=== PATIENT | male | born 2000 | race Caucasian/White ===

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

== ENCOUNTER → 2019-01-24 | Outpatient (REF) | payer OTHER ==
[~2019-01-24] MED LIST changes: +IBUP-1094 PO
[2019-01-24 17:45] LABS: ALT/SGPT 29 U/L (12-78); BILIRUBIN,TOTAL 0.6 MG/DL (0.2-1.0); BLOOD UREA NITROGEN 13 MG/DL (7-18); CALCIUM LEVEL 9.4 MG/DL (8.5-10.1); CARBON DIOXIDE LEVEL 30 MEQ/L (21-32); CHLORIDE LEVEL 109 MEQ/L (98-107); CREATININE FOR GFR 0.84 MG/DL (0.70-1.30); GLUCOSE, FASTING 87 MG/DL (70-100); POTASSIUM SERUM 4.2 MEQ/L (3.5-5.1); SODIUM LEVEL 142 MEQ/L (136-145); TOTAL PROTEIN 7.6 GM/DL (6.4-8.2)
[2019-01-24 17:48] LABS: BASO % 0.7 % (0.0-1.0); EOS # 0.4 10^3/uL (0.0-0.5); EOS % 6.5 % (0.0-3.0); HEMATOCRIT 45.5 % (42.0-52.0); LYMPH % 33.8 % (24.0-44.0); MEAN CORPUSCULAR HEMOGLOBIN 30.1 pg (27.0-33.0); MEAN CORPUSCULAR VOLUME 91.4 fl (80.0-96.0); MONO # 0.5 10^3/uL (0.0-0.8); MONO % 7.8 % (0.0-5.0); NEUTROPHILS # 3.1 10^3/uL (1.5-8.5); PLATELET COUNT, AUTOMATED 161 10^3/uL (150-450); RED BLOOD COUNT 4.98 10^6/uL (4.30-6.10)
[2019-01-24 17:57] LABS: MONO REFLEX EBV COMP NEGATIVE (NEGATIVE)
[2019-01-26 14:07] LABS: EBV AB TO NUCLEAR ANTIGEN >600.0 U/mL (0.0-17.9); EBV VIRAL CAPSID AG IgM <36.0 U/mL (0.0-35.9)
== END ==
LOC: M LAB REF 16:23
PROVIDERS: ATTEND Physician Assistant
DX: J02.9 Acute pharyngitis, unspecified (principal)

== ENCOUNTER 2019-06-06 04:00 | Emergency (ER) | payer OTHER ==
[~2019-06-06] VITALS: Ht 175.3 cm; Wt 87.3 kg
[2019-06-06] MEDS ORDERED: NAPR-837 PO (05:36)
[2019-06-06 05:45] VITALS: BP 137/74
[2019-06-06] MEDS ORDERED: NAPROXEN 250 MG TAB PO ONE (05:45)
--- NOTE | 2019-06-06 07:09 | REP ---
Clinical: Trauma. Ankle sprain. Technique: AP, lateral, bilateral oblique views of the left ankle. Findings: No acute fracture or dislocation. Skeletal structures, joint spaces, and surrounding soft tissues appear normal. Impression: No acute fracture or dislocation. Electronically Signed by Juanito Nuñez MD 06/06/2019 07:00 A
== END 2019-06-06 05:58 | disposition home or self-care (01) ==
LOC: M ED 04:00
DX: S93.402A Sprain of unspecified ligament of left ankle, initial encounter (principal); X50.1XXA Overexertion from prolonged static or awkward postures, initial encounter; Y92.830 Public park as the place of occurrence of the external cause; Y93.9 Activity, unspecified; Y99.9 Unspecified external cause status

== ENCOUNTER → 2019-06-24 | Outpatient (REF) | payer OTHER ==
[~2019-06-24] MED LIST changes: +NAPR-837 PO
== END ==
LOC: M LAB REF 12:21
PROVIDERS: ATTEND Physician Assistant
DX: R05 Cough (principal)

== ENCOUNTER → 2019-07-25 | Outpatient (CLI) | payer OTHER ==
--- NOTE | 2019-07-25 14:49 | REP ---
LEFT HAND, FOUR VIEWS: There is no evidence of an acute fracture, dislocation or intrinsic bone disease. The joint spaces appear normal. IMPRESSION: No fracture or dislocation. Electronically Signed by Jam Bolton MD 07/26/2019 10:07 A
== END ==
LOC: M ADAMS 11:56
PROVIDERS: ATTEND Physician Assistant
DX: M79.642 Pain in left hand (principal); M79.645 Pain in left finger(s)

== ENCOUNTER → 2020-04-22 | Outpatient (CLI) | payer OTHER ==
[~2020-04-22] MED LIST changes: -IBUP-1094 PO; +SFHIBU200 PO
--- NOTE | 2020-04-23 07:05 | REP ---
INDICATION: M79.672 [id number] COMPARISON: None. TECHNIQUE: AP, lateral, bilateral oblique views left foot. FINDINGS: The osseous structures and joint spaces are intact and normal. There is no evidence for acute fracture or dislocation. Surrounding soft tissues are unremarkable. No subcutaneous emphysema or radiodense foreign body. IMPRESSION: Normal left foot radiograph series. No acute fracture or dislocation. <Electronically signed by Juanito Nuñez > 04/23/20 0701
== END ==
LOC: M RAD 16:57
PROVIDERS: ATTEND Physician Assistant
DX: M79.672 Pain in left foot (principal); Z91.81 History of falling

== ENCOUNTER 2020-08-21 09:32 | Emergency (ER) | payer BC, OTHER ==
[~2020-08-21] VITALS: Ht 175.3 cm; Wt 100.0 kg
[2020-08-21 09:32] VITALS: BP 120/72
--- NOTE | 2020-08-21 10:12 | REP ---
INDICATION: TRAUMA COMPARISON: 06/06/2019 TECHNIQUE: AP, lateral, bilateral oblique views. FINDINGS: Swelling suggesting inversion injury. No acute fracture or dislocation. Corticated bony density just below the fibular tip remains stable. Ankle mortise appears intact. IMPRESSION: Mild swelling. No acute fracture or dislocation appreciated. <Electronically signed by Juanito Nuñez > 08/21/20 0309
--- NOTE | 2020-08-21 10:12 | REP ---
INDICATION: TRAUMA COMPARISON: None. TECHNIQUE: AP, lateral, bilateral oblique views left foot. FINDINGS: The osseous structures and joint spaces are intact and normal. There is no evidence for acute fracture or dislocation. Surrounding soft tissues are unremarkable. No subcutaneous emphysema or radiodense foreign body. IMPRESSION: . No acute fracture or dislocation. <Electronically signed by Juanito Nuñez > 08/21/20 5643
== END 2020-08-21 11:00 | disposition home or self-care (01) ==
LOC: M ED 09:32
DX: S93.402A Sprain of unspecified ligament of left ankle, initial encounter (principal); X50.9XXA Other and unspecified overexertion or strenuous movements or postures, initial encounter; Y92.310 Basketball court as the place of occurrence of the external cause; Y93.02 Activity, running; Y99.8 Other external cause status; F17.200 Nicotine dependence, unspecified, uncomplicated

== ENCOUNTER 2021-01-31 06:38 | Emergency (ER) | payer BC, MEDICAID, OTHER ==
[~2021-01-31] VITALS: Ht 175.3 cm; Wt 95.2 kg
[2021-01-31 06:39] VITALS: BP 136/70
--- OUTSIDE RECORDS SUMMARY | 2021-01-31 06:45 | CCD ---
Author Author [facility] Organization [facility] Address Unknown Phone Unavailable Care Team Providers Care Infrastructure Manager Name Role Phone Maring, Shaggy PA Unavailable Unavailable Maring, Shaggy PA Unavailable Unavailable Maring, Shaggy PA Unavailable Unavailable Maring, Shaggy PA Unavailable Unavailable Maring, Shaggy PA Unavailable Unavailable Maring, Shaggy PA Unavailable Unavailable Maring, Shaggy PA Unavailable Unavailable Maring, Shaggy PA Unavailable Unavailable Maring, Shaggy PA Unavailable Unavailable Maring, Shaggy PA Unavailable Unavailable Maring, Shaggy PA Unavailable Unavailable Maring, Shaggy PA Unavailable Unavailable Maring, Shaggy PA Unavailable Unavailable Maring, Shaggy PA Unavailable Unavailable Maring, Shaggy PA Unavailable Unavailable Maring, Shaggy PA Unavailable Unavailable Alberts, Katelin Stacie PA Unavailable Unavailable Alberts, Katelin Stacie PA Unavailable Unavailable Alberts, Katelin Stacie PA Unavailable Unavailable Alberts, Katelin Stacie PA Unavailable Unavailable Alberts, Katelin Stacie PA Unavailable Unavailable Alberts, Katelin Stacie PA Unavailable Unavailable Alberts, Katelin Stacie PA Unavailable Unavailable Alberts, Katelin Stacie PA Unavailable Unavailable Alberts, Katelin Stacie PA Unavailable Unavailable Alberts, Katelin Stacie PA Unavailable Unavailable Re-disclosure Warning The records that you are about to access may contain information from federally-assisted alcohol or drug abuse programs. If such information is present, then the following federally mandated warning applies: This information has been disclosed to you from records protected by federal confidentiality rules (42 CFR part 2). The federal rules prohibit you from making any further disclosure of this information unless further disclosure is expressly permitted by the written consent of the person to whom it pertains or as otherwise permitted by 42 CFR part 2. A general authorization for the release of medical or other information is NOT sufficient for this purpose. The Federal rules restrict any use of the information to criminally investigate or prosecute any alcohol or drug abuse patient.The records that you are about to access may contain highly sensitive health information, the redisclosure of which is protected by Article 27-F of the [facility] Public Health law. If you continue you may have access to information: Regarding HIV / AIDS; Provided by facilities licensed or operated by the [facility] Office of Mental Health; or Provided by the [facility] Office for People With Developmental Disabilities. If such information is present, then the following [facility] mandated warning applies: This information has been disclosed to you from confidential records which are protected by state law. State law prohibits you from making any further disclosure of this information without the specific written consent of the person to whom it pertains, or as otherwise permitted by law. Any unauthorized further disclosure in violation of state law may result in a fine or senior care sentence or both. A general authorization for the release of medical or other information is NOT sufficient authorization for further disc losure. Family History Family Member Name Family Member Gender Family Member Status Date o f Status Description Data Source(s) Unknown Unknown Problem [facility] ([facility]) mgm Unknown Unknown Problem [facility] Encounters Encounter Providers Location Date Indications Data Source(s ) Outpatient 01/18/2021 08:32:54 PM EDT - 021 08:51:03 PM EDT [facility] ([facility]) Outpatient Attender: Shaggy MARTIN 11/16/19 03:04:00 PM EDT - 11/15/2020 03:43:52 PM EDT [facility] ([facility] ) Outpatient Attender: Stacie MARTIN Ceci Naylor fantasma 04/22/2020 01:55:00 PM EST [facility] ([facility]) Medications No Information Insurance Providers Payer name Policy type / Coverage type Policy ID Covered republican ID Covered republican's relationship to shaffer Policy Shaffer Plan Information BCBS E[place]IRE [place] DIV [id number] MO2 [id number] O BLUE [id number] SP [id number] BCBS E[place]IRE [place] DIV [id number] MO2 [id number] BCBS E[place]IRE [place] DIV [id number] MO2 [id number] BC/CHP ([facility]) Health Maintenance Organization (O) [id number] Self [id number] BC/CHP (VF) Health Maintenance Organization (O) [id number] Self [id number] [place] [employer] [id number] Family Dependent [id number] [employer] [id number] Family Dependent [id number] Medicaid P [id number] S [id number] 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 WorkComp Health Claim [id number] Emp [place] [id number] Medicaid Medicaid [id number] Self [id number] WorkComp Carrier [place] WorkComp Health Claim [id number] Employ 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 [id number] Employee [id number] [employer] [place] [employer] [id number] Family Dependent [id number] [employer] [place] [employer] [id number] Family Dependent [id number] [facility] [place] [employer] [id number] Family Dependent [id number] [facility] [place] Health Maintenance Organization (HMO) [id number] Family Dependent [id number] [facility] O [id number] S [id number] [facility] [place] Health Maintenance Organization (HMO) [id number] Family Dependent [id number] [facility] [id number] MO2 [id number] [facility] [id number] MO2 [id number] [facility] [place] Health Maintenance Organization (HMO) [id number] Family Dependent [id number] [facility] [place] [employer] [id number] Family Dependent [id number] [facility] [place] [employer] [id number] Family Dependent 8 [id number] [facility] [place] [employer] [id number] Family Dependent 8 [id number] [facility] O [id number] S [id number] [place] 306/806 [id number] SP [id number] [facility] [place] Family Levels Beyond [id number] Self [facility] [place] [employer] [id number] Family Depende nt D [facility]SEA Dental Claims P [id number] O [id number] D Managed Care [facility] O [id number] S [id number] Medicaid Dental S UNAVAILABLE S UN AVAILABLE D [facility] P [id number] S [id number] [facility](MCAID) O [id number] S [id number] [facility] [id number] SP [id number] [facility] [id number] SP [id number] [facility] [id number] MO2 [id number] Medicaid P [id number] S [id number] Self Pay P [id number] S [id number] Self Pay P UNAVAILABLE S UNAVAILA BLE D [facility] P [id number] S [id number] Problems, Conditions, and Diagnoses No Information Surgeries/Procedures Procedure Description Date Indications Data Source(s) Apply Splint Short Leg (Calf To Foot) 04/22/2020 12:00 :00 AM EST [facility]) Results ID Date Data Source [id number] 2021 12:00:00 AM EDT [facility] Name Value Range Interpretation Code Description Data Sanjana rce(s) Supporting Document(s) SARS-COV-2 Negative [facility] and re ported by [facility]. Procedure Social History No Information Vital Signs ID Date Data Source UNK Name Value Range Interpretation Code Description Data Source(s) Oxygen saturation in Arterial blood by Pulse oximetry 98 % 98 % [facility] ([facility]) Body temperature 98.9 [degF] 98.9 [degF] [facility] ([facility]) Body weight 205.00 [lb_av] 205.00 [lb_av] MEDEN T ([facility]) Systolic blood pressure 124 mm[Hg] 124 mm[Hg] M EDENT ([facility]) Diastolic blood pressure 74 mm[Hg] 74 mm[Hg] [facility] ([facility]) Respiratory rate 16 /min 16 /min [facility] ( [facility]) Heart rate 104 /min 104 /min MED[facility] ([facility])
[2021-01-31 08:23] VITALS: O2SAT 97
--- OUTSIDE RECORDS SUMMARY | 2021-01-31 08:34 | CCD ---
Author Author [facility] Organization [facility] Address Unknown Phone Unavailable Care Team Providers Care Machine Feeder Raw Stock Name Role Phone Maring, Shaggy PA Unavailable [...] is protected by Article 27-F of the [facility] Public Health law. If you continue you may have access to information: Regarding HIV / AIDS; Provided by facilities licensed or operated by the [facility] Office of Mental Health; or Provided by the [facility] Office for People With Developmental Disabilities. If such information is present, then the following [facility] mandated warning applies: This information has [...] law may result in a fine or care home sentence or both. A general authorization for the release of medical or other information is NOT sufficient authorization for further disc losure. Family History Family Member Name Family Member Gender Family Member Status Date o f Status Description Data Source(s) Unknown Unknown Problem [facility] ([facility]) mgm Unknown Unknown Problem [facility] ([facility] Encounters Encounter Providers Location Date Indications Data Source(s ) Outpatient 01/18/2021 08:32:54 PM EDT - 021 08:51:03 PM EDT [facility] ([facility]) Outpatient Attender: Shaggy MARTIN 11/16/19 03:04:00 PM EDT - 11/15/2020 03:43:52 PM EDT [facility] ([facility] ) Outpatient Attender: Stacie MARTIN Ceci Naylor fantasma 04/22/2020 01:55:00 PM EST [facility] ([facility]) Medications No Information Insurance Providers Payer name Policy type / Coverage type Policy ID Covered constitution party ID Covered constitution party's relationship to shaffer Policy Shaffer Plan Information BCBS EMPIRE [place] DIV [id number] MO2 [id number] BCBS EMPIRE [place] DIV [id number] MO2 [id number] BCBS E[place]IRE [place] DIV [id number] MO2 [id number] O BLUE [id number] SP [id number] BC/CHP ([facility]) Health Maintenance Organization (O) [id number] Self [id number] BC/CHP ([facility]) Health Maintenance Organization (O) [id number] Self [id number] [place] [employer] [id number] 2..[id number] Family Dependent [id number] [employer] [employer] [id number] Family Dependent [id number] Medicaid P [id number] S [id number] WorkComp Carrier [place] WorkComp Health Claim [id number] Employ ee [id number] 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 WorkComp Health Claim [id number] Emp loyee [id number] Medicaid Medicaid [id number] Self [id number] 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 [id number] Employee [id number] [facility] Maintenance Organization ([facility]) [id number] Family Dependent [id number] [facility] [id number] S [id number] [facility] [place] Health Maintenance Organization (HMO) [id number] Family Dependent [id number] [employer] [facility] [id number] MO2 [id number] UNITED [facility] [id number] MO2 [id number] [facility] [place] Health Maintenance Organization (O) [id number] Family Dependent [id number] BCBS EMPIRE [facility] [id number] MO2 [id number] [facility] [place] [employer] [id number] Family Dependent 8 [id number] [facility] [place] [employer] [id number] Family Dependent 8 [id number] [employer] [facility] O [id number] S [id number] [facility] Family Commercial [id number] Self [facility] [place] [employer] [id number] Family Depende nt D CSEA Dental Claims P [id number] O [id number] D Managed Care [facility] O [id number] S [id number] Medicaid Dental S UNAVAILABLE S UN AVAILABLE D [facility] P [id number] S [id number] [facility] [place] [employer] [id number] Family Dependent [id number] [facility] [id number] MO2 [id number] [place] 306/806 [id number] SP [id number] UNHC COMMUNITY PLAN [facility]O [id number] SP [id number] [facility](MCAID) O [id number] S [id number] UNHC COMMUNITY PLAN MCDHMO [id number] SP [id number] Medicaid P [id number] S [id number] Self Pay P [id number] S [id number] Self Pay P UNAVAILABLE S UNAVAILA BLE D [employer] [employer] P [id number] S [id number] [facility] [id number] Family Dependent [id number] [facility] [id number] [id number] Family Dependent [id number] [facility] [employer] [id number] Family Dependent [id number] Problems, Conditions, and Diagnoses No Information Surgeries/Procedures Procedure Description Date Indications Data Source(s) Apply Splint Short Leg (Calf To Foot) 04/22/2020 12:00 :00 AM EST [facility] Results ID Date Data Source [id number] 2021 12:00:00 AM EDT [facility] Name Value Range Interpretation Code Description Data Sanjana rce(s) Supporting Document(s) SARS-COV-2 Negative [facility] This lab was ordered by Eg[facility] and re ported by Eg[facility]. Procedure Social History No Information Vital Signs ID Date Data Source UNK Name Value Range Interpretation Code Description Data Source(s) Oxygen saturation in Arterial blood by Pulse oximetry 98 % 98 % [facility]) Body temperature 98.9 [degF] 98.9 [degF] [facility] ([facility]) Body weight 205.00 [lb_av] 205.00 [lb_av] MEDEN T ([facility]) Systolic blood pressure 124 mm[Hg] 124 mm[Hg] M EDENT ([facility]) Diastolic blood pressure 74 mm[Hg] 74 mm[Hg] [facility] ([facility]) Respiratory rate 16 /min 16 /min [facility]) Heart rate 104 /min 104 /min [facility] ([facility])
== END 2021-01-31 09:28 | disposition home or self-care (01) ==
LOC: M ED 06:38
DX: U07.1 COVID-19 (principal)

== ENCOUNTER → 2021-05-10 | Outpatient (REF) | payer MEDICAID ==
[2021-05-10 20:23] LABS: GC DNA AMPLIFICATION NEGATIVE (NEGATIVE)
== END ==
LOC: M LAB REF 18:18
PROVIDERS: ATTEND Physician Assistant
DX: R30.0 Dysuria (principal)

== ENCOUNTER → 2021-09-28 | Outpatient (REF) | payer OTHER | LOC: M WUC 18:07 | PROVIDERS: ATTEND Physician Assistant | DX: J02.9 Acute pharyngitis, unspecified (principal); Z20.828 Contact with and (suspected) exposure to other viral communicable diseases ==

== ENCOUNTER 2023-08-04 19:02 | Emergency (ER) | payer OTHER ==
[~2023-08-04] VITALS: Ht 177.8 cm; Wt 88.6 kg
[2023-08-04 20:22] LABS: HEMOGLOBIN 15.4 g/dl (13.5-17.5); MEAN CORPUSCULAR HEMOGLOBIN 31.6 pg (27.0-33.0); MEAN CORPUSCULAR VOLUME 90.2 fl (80.0-96.0); PLATELET COUNT, AUTOMATED 203 10^3/uL (150-450); RED BLOOD COUNT 4.88 10^6/uL (4.30-6.10); WHITE BLOOD COUNT 6.1 10^3/uL (4.0-10.0)
[2023-08-04 21:03] LABS: ETHYL ALCOHOL (ETHANOL) 0.209 % (0.000-0.010)
[2023-08-04 21:05] LABS: ALBUMIN 3.7 G/DL (3.2-5.2); ALKALINE PHOSPHATASE 59 U/L (46-116); ALT/SGPT 49 U/L (7.0-40); AST/SGOT 40 U/L (<34); BILIRUBIN,DIRECT 0.2 MG/DL (<0.4); BILIRUBIN,TOTAL 0.7 MG/DL (0.3-1.2); BLOOD UREA NITROGEN 10 MG/DL (9-23); CALCIUM LEVEL 9.2 MG/DL (8.5-10.1); CARBON DIOXIDE LEVEL 25 MMOL/L (20-31); CHLORIDE LEVEL 106 MMOL/L (98-107); CREATININE FOR GFR 0.86 MG/DL (0.70-1.30); GLOMERULAR FILTRATION RATE > 60.0 (>60); GLUCOSE, FASTING 89 MG/DL (60-100); POTASSIUM SERUM 3.7 MMOL/L (3.5-5.1); SALICYLATE LEVEL < 3.0 MG/DL (<30); SODIUM LEVEL 142 MMOL/L (136-145); TOTAL PROTEIN 7.7 G/DL (5.7-8.2)
[2023-08-04 21:07] LABS: THYROID STIMULATING HORMONE 0.917 uIU/ML (0.55-4.78)
[2023-08-04 21:13] LABS: AMPHETAMINES LEVEL URINE NEGATIVE (NEGATIVE); BARBITURATES URINE NEGATIVE (NEGATIVE); BENZODIAZEPINES URINE NEGATIVE (NEGATIVE); METHADONE URINE NEGATIVE (NEGATIVE); OPIATES URINE NEGATIVE (NEGATIVE); PHENCYCLIDINE URINE NEGATIVE (NEGATIVE)
[2023-08-04 21:14] LABS: CANNABINOIDS URINE NEGATIVE (NEGATIVE)
[2023-08-04 21:26] LABS: COCAINE METABOLITE URINE POSITIVE (NEGATIVE)
[2023-08-05 03:21] VITALS: BP 121/63; TEMP 97.7; O2SAT 100
== END 2023-08-05 03:56 | disposition home or self-care (01) ==
LOC: M ED 19:02
DX: Z04.6 Encounter for general psychiatric examination, requested by authority (principal); F32.A Depression, unspecified; F12.10 Cannabis abuse, uncomplicated